=== PATIENT | female | born 1995 | race Caucasian/White ===

== ENCOUNTER 2018-07-04 23:37 | Emergency (ER) | payer OTHER ==
[~2018-07-04] VITALS: Ht 157.5 cm; Wt 93.9 kg
[2018-07-05] MEDS ORDERED: VISTARIL25 MG PO (02:47)
== END 2018-07-05 03:08 | disposition home or self-care (01) ==
LOC: ER 23:37
DX: G44.209 Tension-type headache, unspecified, not intractable (principal); F06.4 Anxiety disorder due to known physiological condition

== ENCOUNTER 2018-07-14 22:35 | Emergency (ER) | payer OTHER ==
[~2018-07-14] VITALS: Ht 157.5 cm; Wt 95.3 kg
[~2018-07-14 22:35] MED LIST: VISTARIL25 MG PO
[2018-07-15] MEDS ORDERED: ULTRACET PO (07:20)
[2018-07-15] MEDS ORDERED: SILVADENE20 GM TOP (07:20)
[2018-07-15] MEDS ORDERED: DUI500 PO (07:20)
[2018-07-15] MEDS ORDERED: INTESTINEX680 M1 PO (07:20)
== END 2018-07-15 08:43 | disposition home or self-care (01) ==
LOC: ER 22:35
DX: D72.829 Elevated white blood cell count, unspecified (principal); L55.0 Sunburn of first degree

== ENCOUNTER 2018-07-16 12:58 | Inpatient (IN) | payer OTHER ==
[~2018-07-16] VITALS: Ht 157.5 cm; Wt 96.2 kg
[~2018-07-16 12:58] MED LIST changes: +DUI500 PO; +INTESTINEX680 M1 PO; +SILVADENE20 GM TOP; +ULTRACET PO
== END 2018-07-21 15:48 | disposition home or self-care (01) | DRG 935 ==
LOC: ER 12:58 → MEDI 21:40
PROVIDERS: ADMIT Specialist
DX: T24.202A Burn of second degree of unspecified site of left lower limb, except ankle and foot, initial encounter (principal); L55.1 Sunburn of second degree; Y27.8XXA Contact with other hot objects, undetermined intent, initial encounter; D72.828 Other elevated white blood cell count; M79.662 Pain in left lower leg; M79.661 Pain in right lower leg; E66.8 Other obesity; Z68.30 Body mass index [BMI] 30.0-30.9, adult

== ENCOUNTER 2025-01-18 12:04 | Outpatient (CLI) | payer OTHER | END 2025-01-18 12:05 | disposition home or self-care (01) | LOC: PRENATAL 12:04 | PROVIDERS: ATTEND Obstetrics & Gynecology Maternal & Fetal Medicine | DX: O44.02 Complete placenta previa NOS or without hemorrhage, second trimester (principal); O26.23 Pregnancy care for patient with recurrent pregnancy loss, third trimester; Z14.8 Genetic carrier of other disease; O10.013 Pre-existing essential hypertension complicating pregnancy, third trimester; O99.213 Obesity complicating pregnancy, third trimester; Z3A.21 21 weeks gestation of pregnancy ==